=== PATIENT | male | born 1980 | race African-American/Black ===

== ENCOUNTER 2018-12-02 18:24 | Inpatient (IN) ==
--- NOTE | 2018-12-02 19:35 | Diag Imaging Result Doc PS360 ---
FLAT/UPRIGHT ABD/1 VIEW CHEST - 12/02/2018 INDICATION: constipation vomiting TECHNIQUE: COMPARISON: 10/27/2016 FINDINGS: The chest is clear. There is mild constipation throughout the colon. No bowel obstruction or free air. IMPRESSION: Mild constipation but no acute disease. Electronically signed by Sin Velasquez 12/02/2018 7:33 PM
[2018-12-02] MEDS ORDERED: NS 1,000 ML IV ONE ×3 (20:14→21:43)
[2018-12-02] MEDS ORDERED: ZOFRAN IV ONE (20:14)
[2018-12-02 20:26] LABS: BASO# 0.02 X1000 (0.0-0.2); BASO% 0.2 % (0.0-0.8); EOS# 0.07 X1000 (0.0-0.7); EOS% 0.8 % (0.0-10.0); HEMATOCRIT 46.8 % (42.0-52.0); HEMOGLOBIN 16.8 g/dL (14.0-18.0); IMM GRAN# 0.02 X1000 (0.0-0.04); IMM GRAN% 0.2 % (0.0-0.5); LYMPH% 16.9 % (20.5-51.1); MCH 29.7 PG (27-31); MCHC 35.9 g/dL (33-37); MCV 82.8 FL (81-99); MONO# 0.83 X1000 (0.11-0.59); MPV 12.7 FL (7.4-10.4); NEUT# 5.96 X1000 (1.4-6.5); NEUT% 71.9 % (42.2-75.2); PLT 177 X1000 (130-400); RBC 5.65 XMIL (4.7-6.1); RDW 11.7 % (11.5-14.5)
[2018-12-02 20:47] LABS: ESTIMATED GFR > 60
[2018-12-02 21:10] LABS: AGAP 19; ALBUMIN 5.2 g/dL (3.5-5.0); ALKALINE PHOSPHATASE 96 U/L (32-122); BUN 9 mg/dL (8-22); CALCIUM 9.9 mg/dL (8.8-10.2); CHLORIDE 92 mmol/L (98-107); COSMO 290; CREATININE 1.2 mg/dL (0.7-1.2); GLUCOSE 440 mg/dL (70-104); GOT 20 U/L (10-34); GPT 38 U/L (10-44); LIPASE 13 U/L (13-60); POTASSIUM 4.2 mmol/L (3.5-5.1); SODIUM 136 mmol/L (136-145); TCO2 26 mmol/L (25-35); TOTAL PROTEIN 8.7 g/dL (6.3-8.3)
[2018-12-02 21:24] LABS: CLARITY CLEAR (CLEAR); COLOR YELLOW; URINE BACTERIA 1+ /HFP; URINE EPITHELIAL CELLS <10 /HPF (<10); URINE RBC <10 /HPF (<10); URINE SOURCE CLEAN CATCH; URINE WBC <10 /HPF (<10)
[2018-12-02 21:25] LABS: BILIRUBIN URINE NEGATIVE (NEGATIVE); BLOOD URINE TRACE (NEGATIVE); KETONE URINE 2+(Moderate) mg/dL (NEGATIVE); LEUKOCYTES URINE NEGATIVE (NEGATIVE); NITRITE URINE NEGATIVE (NEGATIVE); PROTEIN URINE TRACE mg/dL (NEGATIVE); UROBILINOGEN URINE NORMAL
[2018-12-02] MEDS ORDERED: HUMULIN R SUBQ ONE (21:28)
--- NOTE | 2018-12-02 21:42 | PROVIDER DOCUMENTATION ---
This chart was entered by Yuliana Best Scribe, acting as scribe for Arlene Cancino MD. HPI-Abdominal Pain/GI Problem - General Chief Complaint: N/V/D Stated Complaint: STOMACH ISSUES Time Seen by Provider: 12/02/18 19:20 Source: patient Allergies/Adverse Reactions: Patient Allergies Allergy/AdvReac Type Severity Reaction Status Date / Time No Known Allergies Allergy Verified 01/01/18 13:12 Home Medications: Home Medication List Medication Instructions Recorded Confirmed Last Taken Type NK [No Home Medications] 12/02/18 12/02/18 Unknown History - History of Present Illness-ABD Nature of Presenting Problems: 38 yobm c/o nvd, bloating x 2 days. pt sts had 1 episode of vomiting and 3-4 of diarrhea. pt tried to eat chicken noodle soup today and couldn't keep it down. pt tried baking soda and water, no otc meds w/no relief. pt is afebrile. no dysuria. no sick contacts, pt has no pcp. denies any fevers or chills. States he has some abdominal pain that is diffuse and not localized. Onset/Duration: reports: 2 days ago Timing: reports: still present Activities at Onset: reports: none Exposure to sick contacts?: No Review of Systems - Adult - REVIEW OF SYSTEMS - ADULT Constitutional: reports: no symptoms reported. denies: fever, fatique, night sweats Eyes: reports: no symptoms reported Ears, Nose, Mouth & Throat: reports: no symptoms reported Cardiovascular: reports: no symptoms reported Respiratory: reports: no symptoms reported Gastrointestinal: reports: no symptoms reported, diarrhea, nausea, poor appetite , vomiting, other (bloating). denies: difficulty swallowing, frequent heartburn, rectal bleeding Genitourinary: reports: no symptoms reported. denies: dysuria, discharge, frequency Musculoskeletal: reports: no symptoms reported Integumentary: reports: no symptoms reported Neurological: reports: no symptoms reported Psychiatric: reports: no symptoms reported Endocrine: reports: no symptoms reported Hematologic/Lymphatic: reports: no symptoms reported Allergic/Immunologic: reports: no symptoms reported All Other Systems: Reviewed and Negative Past History - Adult - PAST MEDICAL HISTORY-ADULT Review of Records: reports: Old Records Reviewed, Nursing Assessment Review, Medications Reviewed, Social history reviewed & non-contributory. Major Childhood Illnesses: reports: denies history Cardiovascular: reports: denies history Respiratory: reports: denies history Gastrointestinal: reports: denies history Obstetrical/Gynecological: reports: denies history Genitourinary: reports: denies history Musculoskeletal: reports: denies history Neurological: reports: denies history Endocrine/Immune: reports: denies history Other Conditions: reports: denies history - PRIOR SURGERIES/PROCEDURES Surgical/Procedure History: reports: none - IMMUNIZATION STATUS Childhood Immunizations: See Nurse Assessment Flu Vaccine: See Nurse Assessment - FAMILY HISTORY Family History: reviewed, not pertinent - SOCIAL HISTORY Smoking: cigar (2 black and milds) Provider spent 3-5 mins advising pt. on dangers of tobacco.: Discussed manners to quit use, and f/u contacts for add'l counseling. Substance Use: alcohol Alcohol Use Frequency: occasionally Physical Exam-General - PHYSICAL EXAM-ADULT Initial Vital Signs Reviewed: Yes - CONSTITUTIONAL General Appearance: alert, mild distress (uncomfortable appearing). negative: lethargic, slow to respond, obtunded - EYES Eyes: PERRL/EOMI, pink conjunctivae - HEAD, EARS, NOSE, MOUTH & THROAT HENMT: normocephalic/atraumatic, normal ENT inspection - NECK Neck: non-tender, full range of motion, supple, normal inspection - RESPIRATORY Respiratory: chest non-tender, lungs clear, normal breath sounds - CARDIOVASCULAR Cardiovascular: normal peripheral pulses, regular rate, rhythm - GASTROINTESTINAL (ABDOMEN) Abdominal Exam: normal bowel sounds, non tender, soft, no organomegaly. negative: abnormal bowel sounds, distended - LYMPHATIC Lymphatic: no adenopathy - MUSCULOSKELETAL Back Exam: normal inspection, no CVA tenderness, no vertebral tenderness Extremity: normal range of motion, non-tender, normal inspection Peripheral Pulses: radial (R): 2+, radial (L): 2+ - SKIN Integumentary: normal color, normal turgor, warm/dry - NEUROLOGIC Neurologic: grossly normal, no motor/sensory deficits - PSYCHIATRIC Psych/Mental Status: normal mood/affect, normal thought content, normal thought process, oriented x 3 Progress - PLAN OF CARE/RESULTS Progress/Plan/Lab Results: Vital Signs - 8 hr 12/02/18 18:35 Temperature 98 F Pulse Rate 87 Respiratory Rate 18 Blood Pressure 139/102 O2 Sat by Pulse Oximetry 97 Laboratory Results - last 24 hr 12/02/18 20:10 WBC 8.30 RBC 5.65 Hgb 16.8 Hct 46.8 MCV 82.8 MCH 29.7 MCHC 35.9 RDW Std Deviation 11.7 Plt Count 177 MPV 12.7 H Immature Gran % (Auto) 0.2 Neut % (Auto) 71.9 Lymph % (Auto) 16.9 L [place] % (Auto) 10.0 H Eos % (Auto) 0.8 Baso % (Auto) 0.2 Immature Gran # (Auto) 0.02 Neut # (Auto) 5.96 Lymph # (Auto) 1.40 [place] # (Auto) 0.83 H Eos # (Auto) 0.07 Baso # (Auto) 0.02 Orders Category Date Time Status FLAT/UPRIGHT ABD/1 VIEW CHEST [RAD] Stat Exams 12/02/18 18:38 Completed AMYLASE [CHEM] Stat Lab 12/02/18 19:53 Received CBC WITH ELECTRONIC DIFF [HEME] Stat Lab 12/02/18 20:10 Completed COMPREHENSIVE METABOLIC PANEL [CHEM] Stat Lab 12/02/18 20:10 Received LIPASE [CHEM] Stat Lab 12/02/18 20:10 Received URINALYSIS W/POSS RFLX CULT [URINALYSIS] Stat Lab 12/02/18 19:53 Uncollected 0.9% Sodium Chloride Inj [Ns] 1,000 ml Med 12/02/18 20:14 Active IV 999 mls/hr Ondansetron [Zofran] Med 12/02/18 20:14 Discontinued 4 mg IV NOW ONE Patient with no WBC and no localized abdominal pain. Glucose 440. No previous history. Upon speaking patient he has been drinking a lot of water recently. Spoke to Dr Camilo given that patient does not have PCP. Ok with OBS adm ission. Wanted patient started on sliding scale. Result Diagrams: 12/02/18 20:10 12/02/18 20:10 - XRAY 1 XRAY Study: Abdomen Impression: Normal, See EMR Report (FLAT/UPRIGHT ABD/1 VIEW CHEST - 12/02/2018 INDICATION: constipation vomiting TECHNIQUE: COMPARISON: 10/27/2016 FINDINGS: The chest is clear. There is mild constipation throughout the colon. No bowel obstruction or free air. IMPRESSION: Mild constipation but no acute disease. Electronically signed by Sin Velasquez 12/02/2018 7:33 PM) - CONSULTS/PCP/HOSPITALIST Notification #1 *Consult/PCP/Hospitalist*: Dr Camilo Time Discussed: 21:29 Consult Disposition: Admit Departure - Departure Date of Disposition Decision: 12/02/18 Time of Disposition Decision: 21:27 DIAGNOSIS: Diabetes mellitus, new onset, Hyperglycemia, unspecified, Nausea and vomiting Disposition: ADMITTED INPATIENT 09 Certified Medical Emergency: Emergent Condition: Stable Referrals and Follow-Ups: None,PCP [Primary Care Provider] - - Critical Care Note This patient required my direct & personal management of CC.: No Attestation - Physician/ MARCUS Attestation Patient care was provided by Advanced Practice Provider:: No The physician spent face to face time with patient:: Yes Advanced Practice Provider documentation review:: Supervising physician onsite and consulted in the evaluation and care of this patient. The physician did have a face to face encounter with the patient. This chart was documented by the indicated scribe, (Yuliana Best Scribe) and accurately reflects the services I performed and decisions made by me, Arlene Cancino MD, as attested by the provider's signature.
[2018-12-02] MEDS ORDERED: ZOFRAN IV PRN (21:48)
[2018-12-02] MEDS ORDERED: HUMULIN R (PARKWAY) ONE (21:59)
[2018-12-03] MEDS: HUMULIN R (PARKWAY) SUBQ SCH ×4 (06:16→21:32)
[2018-12-03 08:49] LABS: HEMOGLOBIN A1C 9.6 % (4.8-6.0)
[2018-12-03 08:52] LABS: AGAP 8; ALBUMIN 4.1 g/dL (3.5-5.0); ALKALINE PHOSPHATASE 69 U/L (32-122); BUN 8 mg/dL (8-22); CALCIUM 9.4 mg/dL (8.8-10.2); CHLORIDE 103 mmol/L (98-107); COSMO 280; CREATININE 1.2 mg/dL (0.7-1.2); ESTIMATED GFR > 60; GLUCOSE 110 mg/dL (70-104); GOT 18 U/L (10-34); GPT 27 U/L (10-44); POTASSIUM 3.4 mmol/L (3.5-5.1); SODIUM 141 mmol/L (136-145); TCO2 30 mmol/L (25-35); TOTAL PROTEIN 6.7 g/dL (6.3-8.3)
[2018-12-03] MEDS: LOVENOX SUBQ SCH (09:18)
[2018-12-03] MEDS: PRILOSEC PO SCH ×2 (09:18→21:32)
[2018-12-03] MEDS: NS 1,000 ML IV PRN ×2 (09:19→21:34)
--- NOTE | 2018-12-03 11:16 | HISTORY AND PHYSICAL ---
PRIMARY CARE PROVIDER: No one. CHIEF COMPLAINT: Abdominal bloating, nausea, vomiting, some mild diarrhea, excessive urination and thirst. HISTORY OF PRESENT ILLNESS: Mr. Javier Dixon is a 38-year-old, male, who does not routinely follow up with a primary care provider. His only medical history is hemorrhoids where he has blood about once a year with the last time being just a few days ago. About 3 days ago, he started having development of bloating and pressure in the abdomen with some nausea and vomiting, could not really hold anything down. Maybe some mild diarrhea but mostly constipation with it. What he did notice and what his girlfriend at the bedside noticed most is that he was excessively thirsty and having excessive urination. His diet consists of essentially anything that he craves. He does not eat in excess, but he does crave sweets. Upon presentation, he had a blood glucose level of 440. Urine with positive glucose and ketones with an anion gap of 19 and a bicarb of 26. He was treated with insulin, and was given antiemetics for the nausea. He is starting to feel better. His blood glucose level is back down to 110. He has also noticed that he has had fatigue and his hemoglobin A1c is up to 9.6. He is now here with a new diagnosis of diabetes mellitus. This is either type 1 or type 2 but he is with a normal BMI although he does not have any type of exercise or diet control. No recent reports of infections. It is really unclear if he has got type 1 or type 2. PAST MEDICAL HISTORY: Hemorrhoid flare about once a year where he has blood in the stool with the last time being a few days ago. SURGICAL HISTORY: None. SOCIAL HISTORY: One pack per day smoker for at least 7 years. He drinks about 2 glasses of wine a week. Smokes marijuana daily. Does not work. Does not have kids. He lives at home with his girlfriend. FAMILY HISTORY: His paternal grandmother had diabetes. His mother had breast cancer. ALLERGIES: No known drug allergies. HOME MEDICATIONS: None. REVIEW OF SYSTEMS: Fourteen point review of systems are complete. All are negative except for those mentioned above in HPI. PHYSICAL EXAMINATION: VITAL SIGNS: Temperature 98.1 degrees, heart rate 54, respiratory rate 18, blood pressure 124/72, and O2 saturation 100% on room air. GENERAL: Mr. Javier Dixon is a 38-year-old male. He is in no acute distress. He is able to answer questions appropriately. HEENT: Atraumatic, normocephalic. Pupils equal, round, and reactive to light. Extraocular movements intact. Mucous membranes are dry. NECK: Trachea midline. CARDIOVASCULAR: S1, S2. Bradycardic rate and rhythm. No rubs, gallops, or murmurs. No lower extremity edema. +2 dorsalis and radial pulses. Negative JVD or carotid bruits. PULMONARY: Clear to auscultation. Bilateral breath sounds. No accessory muscle use or work of breathing noted. ABDOMEN: Soft, nontender, and nondistended. Positive bowel sounds x4. EXTREMITIES: Moves all extremities equally. Full range of motion. NEUROLOGIC: Alert and oriented x3. Follows commands. Sensory is intact. SKIN: Warm, dry, and intact. LABORATORY DATA: White blood cells 8000, hemoglobin 16, hematocrit 46 and platelet count 177,000. Sodium 141, potassium 3.4, BUN 8, creatinine is 1.2, glucose 110, hemoglobin A1c is 9.6. Bilirubin on presentation was 1.2 and is down to 0.9. AST 18. ALT 27. Albumin 4.1. Triglycerides 158. Total cholesterol is 118. LDL 181. Amylase 39. Lipase 13. TSH 0.89. Free T4 is 1.50. Urinalysis trace protein, 2+ ketones and 3+ glucose. IMAGING: Abdominal x-ray just showed some mild constipation. ASSESSMENT AND PLAN: 1. New onset diabetes mellitus type 1 versus type 2. Ordered a C-peptide. He is not your usual obese patient although he is fairly inactive with his life style, and he eats essentially whatever he wants, and he states he does craves sweets frequently. He will be on a sliding scale insulin pattern blood glucose, diabetic diet, and his hemoglobin A1c is elevated at 9.6. He has had elevated blood glucose levels for at least 3 months probably longer. 2. Abdominal complaints with discomfort, bloating, nausea and vomiting. Those are starting to subside. He is requesting to eat. Blood glucose levels are normal. This is likely side effects from the hyperglycemia. Can't totally rule out a gastroenteritis, but symptoms have resolved. 3. Mild constipation. We could add a stool softener. 4. Hyperlipidemia. Statin added. Also added aspirin since he now has a diagnosis of diabetes as well. 5. Tobacco abuse. Cessation discussed. 6. Marijuana use. Daily cessation discus. 7. Deep venous thrombosis prophylaxis. Lovenox. Dictated by VERONICA Lowe for Tay Steele MD Addendum: Patient seen and examined by myself. Agree with VERONICA note. It reflects my assessment and plan. Patient is being admitted to hospital for new onset diabetes mellitus. Will start sliding scale insulin and see how he does. Will start also metformin and will monitor patient closely. cc: VERONICA Lowe MD Gregory S. Cheatham, MD MTDD
[2018-12-03] MEDS ORDERED: GLUCOPHAGE PO ONE (13:54)
[2018-12-03] MEDS: TYLENOL PO PRN ×2 (14:26→21:31)
[2018-12-03] MEDS ORDERED: LIPITOR PO SCH (21:00)
[2018-12-03] MEDS: PERICOLACE PO SCH (21:32)
[2018-12-04] MEDS: NS 1,000 ML IV PRN (04:58)
[2018-12-04 06:35] LABS: BASO# 0.02 X1000 (0.0-0.2); BASO% 0.3 % (0.0-0.8); EOS# 0.19 X1000 (0.0-0.7); EOS% 2.9 % (0.0-10.0); HEMATOCRIT 37.6 % (42.0-52.0); HEMOGLOBIN 13.1 g/dL (14.0-18.0); IMM GRAN# 0.01 X1000 (0.0-0.04); IMM GRAN% 0.2 % (0.0-0.5); LYMPH# 2.72 X1000 (1.2-3.4); LYMPH% 41.4 % (20.5-51.1); MCH 29.8 PG (27-31); MCHC 34.8 g/dL (33-37); MCV 85.5 FL (81-99); MONO# 0.81 X1000 (0.11-0.59); MONO% 12.3 % (1.7-9.3); MPV 12.8 FL (7.4-10.4); NEUT# 2.82 X1000 (1.4-6.5); NEUT% 42.9 % (42.2-75.2); PLT 141 X1000 (130-400); RDW 11.7 % (11.5-14.5); WBC 6.57 X1000 (4.8-10.8)
[2018-12-04] MEDS: HUMULIN R (PARKWAY) SUBQ SCH (06:39)
[2018-12-04] MEDS: PRILOSEC PO SCH (06:39)
[2018-12-04 06:46] LABS: AGAP 8; ALBUMIN 3.7 g/dL (3.5-5.0); ALKALINE PHOSPHATASE 59 U/L (32-122); BUN 7 mg/dL (8-22); CALCIUM 8.9 mg/dL (8.8-10.2); CHLORIDE 103 mmol/L (98-107); COSMO 281; ESTIMATED GFR > 60; GLUCOSE 224 mg/dL (70-104); GOT 18 U/L (10-34); GPT 21 U/L (10-44); MAGNESIUM 1.7 mg/dL (1.5-2.7); POTASSIUM 3.9 mmol/L (3.5-5.1); SODIUM 138 mmol/L (136-145); TCO2 27 mmol/L (25-35); TOTAL PROTEIN 6.2 g/dL (6.3-8.3)
[2018-12-04 07:46] VITALS: BP 130/86
[2018-12-04] MEDS: PERICOLACE PO SCH (08:14)
[2018-12-04] MEDS: LOVENOX SUBQ SCH (08:14)
[2018-12-04] MEDS ORDERED: ASPIRIN PO SCH (09:00)
--- NOTE | 2018-12-04 14:45 | DISCHARGE SUMMARY ---
ADMISSION DATE: 12/03/2018 DISCHARGE DATE: 12/04/2018 ADMISSION DIAGNOSIS: 1. New onset diabetes mellitus type 1 versus type 2. C-peptide is still pending. 2. Abdominal complaints with distemper, bloating, nausea, vomiting. 3. Mild constipation. 4. Hyperlipidemia. 5. Tobacco abuse. 6. Marijuana use. 7. New onset diabetes mellitus type 1 versus type 2. Still there was no peptide available. He is not obese as you would think a type 2 or type 1 would be. He will be sent home with metformin and glipizide. 8. Abdominal complaints of discomfort, bloating, nausea, vomiting that resolved after blood glucose levels returned to a lower level. 9. Mild constipation. May add stool softeners while is here. 10. Hyperlipidemia. He did not get continued on a statin but hopefully with more of a blood glucose level controlled, his lipid panel will improve. 11. Tobacco abuse. Cessation discussed. 12. Marijuana use daily. Cessation discussed. CONSULTATIONS: Social service. SURGERIES AND PROCEDURES: None. HOSPITAL COURSE: Javier Dixon was a 38-year-old male who had complaints of nausea, vomiting, diarrhea for a couple of days, abdominal pressures, high blood glucose level 440 was admitted to inpatient. Started on sliding scale insulin with pattern blood glucoses, diabetic diet, and IV fluids. He was treated for his constipation. He was given statin for high cholesterol and symptoms resolved after his blood glucose levels were more controlled and is discharged home. He did have tobacco abuse cessation discussed. DISCHARGE VITAL SIGNS: Temperature 97.9 degrees, heart rate 55, respiratory rate 18, blood pressure 130/86, O2 saturation 100% on room air. DISCHARGE LAB DATA: White blood cells 6000, hemoglobin 13, hematocrit 37, platelet count 141,000. Sodium 138, potassium 3.9, BUN 7, creatinine is 1.0, glucose 224. IMAGING: Abdominal x-ray is mild constipation, no acute findings. Telemetry strip showed sinus bradycardia. DISCHARGE DIET: Diabetic diet. DISCHARGE ACTIVITY: As tolerated. DISCHARGE MEDICATIONS: 1. Aspirin 81 mg p.o. daily. 2. Metformin 500 mg p.o., it says take half a tablet daily for a week then 1 tablet daily for a week and then twice a day. 3. Glucotrol 5 mg p.o. daily. PHYSICIAN FOLLOWUP: Tiffany Pester, dietitian for diabetes control. DISCHARGE INSTRUCTIONS: If condition changes, contact physician and/or return to the emergency department. Changes may include, but are not limited to, shortness of breath, increased fatigue, excessive bleeding, unexplained weight loss or gain, unimaginable pain, signs or symptoms of infection, blood sugars that remain outside prescribed parameters, any issues with your feet, excessive thirst or urination, please report and keep your follow-up appointments. Take all medications as prescribed. You will need to check your blood glucose levels frequently, at least before meals and at night to keep a log of your trends in your blood glucose levels with your medications as well. DISCHARGE DISPOSITION: Home. Dictated by VERONICA Lowe for Tay Steele MD cc: VERONICA Lowe MD Gregory S. Cheatham, MD
== END 2018-12-04 11:47 | disposition home or self-care (01) | DRG 639 ==
LOC: P.ED 18:24 → P.MEDSURG 18:24 → SUATTDRO 12-03 00:12 → OBSVTOIN 12-03 00:12
PROVIDERS: ADMIT Family Medicine; ATTEND Internal Medicine